=== PATIENT | female | born 1990 | race American Indian/Alaskan Native ===

== ENCOUNTER 2018-05-30 09:13 | Day surgery (SDC) | payer OTHER ==
[2016-04-13 10:06] VITALS: BMI 22.6
[2018-05-30 09:40] VITALS: O2SAT 100
[2018-05-30] MEDS ORDERED: Propofol 10 mg/ml Inj (20 ML) ONE ×2 (11:13)
--- NOTE | 2018-05-30 11:16 | CP.SDSHP ---
Same Day Surgery H & P - History Proposed Procedure: co;onscopy Pre-Op Diagnosis: SEE NOTES - Previous Medical/Surgical History Neuro: Backaches Pain: 4.Moderate Pain - Allergies Allergies: Allergies No Known Allergies Allergy (Verified 04/13/16 10:06) - Physical Exam General Appearance: N Vital Signs: Vital Signs 05/30/18 05/30/18 09:30 11:12 Temperature 98.4 F 98.4 F Pulse Rate 65 65 Respiratory 18 18 Rate Blood Pressure 121/76 121/76 O2 Sat by Pulse 100 100 Oximetry Mental Status: Alert & Oriented x3 Neuro: WNL Heart: WNL Lungs: WNL GI: Other - {Optional Preform as Required} Breast: WNL Abdomen: Other Rectal: Other Integument: WNL : WNL Ortho: WNL ENT: WNL - Impression Pt. Evaluated Today:Candidate for Anesthesia & Procedure: Yes - Date & Time Time: 11:16 Short Stay Discharge - Short Stay Discharge Admitting Diagnosis/Reason for Visit: DIARRHEA Disposition: HOME/ ROUTINE
[2018-05-30] MEDS ORDERED: Belladonna-Phenobarbital PO ONE (11:50)
[2018-05-30 12:08] VITALS: TEMP 98.6
[2018-05-30 12:23] VITALS: BP 114/61; PULSE 68; RESP 14
== END 2018-05-30 12:50 | disposition home or self-care (01) ==
LOC: C.ENDO 09:13
PROVIDERS: ATTEND Specialist
DX: D12.5 Benign neoplasm of sigmoid colon (principal); K57.30 Diverticulosis of large intestine without perforation or abscess without bleeding; K64.0 First degree hemorrhoids; K52.9 Noninfective gastroenteritis and colitis, unspecified
CPT/HCPCS: 45380; 84703; 88305; J2001; J2704

== ENCOUNTER 2018-06-15 08:27 | Day surgery (SDC) | payer OTHER ==
[2016-04-13 10:06] VITALS: BMI 22.6
[2018-06-15 09:17] VITALS: PULSE 88; RESP 16; TEMP 98.7; O2SAT 100
--- NOTE | 2018-06-15 09:50 | CP.SDSHP ---
Same Day Surgery H & P - History Proposed Procedure: EGD Pre-Op Diagnosis: SEE NOTES - Previous Medical/Surgical History Neuro: Headaches, Backaches Pain: 4.Moderate Pain - Allergies Allergies: Allergies No Known Allergies Allergy (Verified 04/13/16 10:06) - Physical Exam General Appearance: N Vital Signs: Vital Signs 06/15/18 08:35 Temperature 98.7 F Pulse Rate 88 Respiratory 16 Rate Blood Pressure 119/74 O2 Sat by Pulse 100 Oximetry Mental Status: Alert & Oriented x3 Neuro: WNL Heart: WNL Lungs: WNL GI: Other - {Optional Preform as Required} Breast: WNL Abdomen: Other Rectal: Other Integument: WNL : WNL Ortho: Other ENT: WNL - Impression Pt. Evaluated Today:Candidate for Anesthesia & Procedure: Yes - Date & Time Time: 09:50 Short Stay Discharge - Short Stay Discharge Admitting Diagnosis/Reason for Visit: DYSPEPSIA Disposition: HOME/ ROUTINE
[2018-06-15] MEDS ORDERED: Propofol 10 mg/ml Inj (20 ML) ONE (09:51)
[2018-06-15] MEDS ORDERED: Lidocaine Hydrochloride 5 ML INJ ONE (09:51)
[2018-06-15] MEDS ORDERED: Belladonna-Phenobarbital PO ONE (10:00)
[2018-06-15 10:43] VITALS: BP 122/69
== END 2018-06-15 10:44 | disposition home or self-care (01) ==
LOC: C.ENDO 08:27
PROVIDERS: ATTEND Specialist
DX: K30 Functional dyspepsia (principal); R10.84 Generalized abdominal pain; R11.0 Nausea; K21.0 Gastro-esophageal reflux disease with esophagitis; K44.9 Diaphragmatic hernia without obstruction or gangrene
CPT/HCPCS: 43239; 84703; 88305; J2704